=== PATIENT | female | born 1940 | race Caucasian/White ===

== ENCOUNTER 2017-04-26 09:37 | Inpatient (IN) | payer MEDICARE, OTHER ==
[~2017-04-26] VITALS: Ht 167.6 cm; Wt 68.2 kg
[2017-04-26] VITALS (9 sets, daily range): BP systolic 100–124; BP diastolic 46–70; PULSE 68–87; TEMP 97.4–98.3
[2017-04-26 09:57] LABS: BASO # 0.1 (0.0-0.2); EOS # 0.2 (0.0-0.7); EOS % 3.1 % (0-4.0); GRAN # 2.6 (1.4-6.5); GRAN % 51.1 % (42.2-75.2); HEMATOCRIT 38.8 % (37.0-47.0); HEMOGLOBIN 12.7 g/dl (12.5-16.0); LYMPH # 1.7 (1.2-3.4); LYMPH % 32.8 % (20.0-51.0); MEAN CELL VOLUME 95 fl (80.0-100.0); MEAN CORPUSCULAR HEMOGLOBIN 31 pg (27.0-31.0); MEAN CORPUSCULAR HGB CONC 33 g/dl (33.0-37.0); MEAN PLATELET VOLUME 9.8 fl (7.4-10.4); MONO # 0.6 (0.1-0.6); MONO % 11.6 % (1.7-9.3); PLATELET COUNT 192 K/mm3 (130-400); RED BLOOD COUNT 4.09 M/mm3 (4.10-5.30); REDCELL DISTRIBUTION WIDTH-CV 12.8 % (11.5-14.5)
[2017-04-26 10:11] LABS: ALBUMIN 4.1 gm/dL (3.5-5.0); BILIRUBIN,TOTAL 0.4 mg/dL (0.0-1.0); CALCIUM 8.9 mg/dL (8.4-10.2); CREATININE, serum 0.74 mg/dL (0.52-1.25); TOTAL PROTEIN 6.9 gm/dL (6.4-8.2)
[2017-04-26] MEDS ORDERED: MOBIC 7.5MG7.5 MG PO (11:14)
[2017-04-26] MEDS ORDERED: ZANTAC 150150 MG PO (11:15)
[2017-04-26] MEDS ORDERED: CENTRUM SILVER1 CTB PO (11:39)
[2017-04-26] MEDS ORDERED: MSM1000 MG PO (11:40)
[2017-04-26] MEDS ORDERED: CALCIUM CARBON650 M2 PO (11:40)
[2017-04-26] MEDS ORDERED: BIOTIN10000 MC1 PO (11:41)
[2017-04-26] MEDS ORDERED: MELAT3MGTAB PO (11:41)
[2017-04-26] MEDS ORDERED: LUTEIN20 M1 PO (11:42)
[2017-04-26] MEDS ORDERED: SALON PAS TP (11:43)
[2017-04-26] MEDS ORDERED: ZEAXANTHIN PO (11:44)
[2017-04-26] MEDS ORDERED: 5HTP PO (11:45)
[2017-04-26 13:13] LABS: INR 1.1 (0.8-3.0); PROTHROMBIN TIME 12.2 SECONDS (9.7-12.8)
[2017-04-26 15:48] LABS: COLLECTION METHOD CATHETER
[2017-04-26 15:57] LABS: MUCOUS Present /lpf; PH 5 (5-8); SQUAMOUS EPITHELIAL None Seen /hpf; URINE APPEARANCE Hazy; URINE BACTERIA Rare /hpf; URINE BILIRUBIN Negative (NEGATIVE); URINE BLOOD Negative (NEGATIVE); URINE COLOR Yellow; URINE GLUCOSE Negative (NEGATIVE); URINE KETONE Negative (NEGATIVE); URINE LEUKOCYTE ESTERASE Negative (NEGATIVE); URINE NITRATE Positive (NEGATIVE); URINE PROTEIN(semi-quant) Negative (NEGATIVE); URINE RBC 0-2 /hpf; URINE UROBILINOGEN Negative (NEGATIVE); URINE WBC 0-2 /hpf
[2017-04-27] VITALS (7 sets, daily range): BP systolic 92–111; BP diastolic 46–71; PULSE 64–85; TEMP 97.8–98.9
[2017-04-27 06:26] LABS: HEMOGLOBIN 10.4 g/dl (12.5-16.0)
[2017-04-27 06:37] LABS: CALCIUM 8.3 mg/dL (8.4-10.2); CREATININE, serum 0.73 mg/dL (0.52-1.25)
[2017-04-28 05:36] VITALS: BP 117/56; PULSE 89; TEMP 99.5
[2017-04-28 07:33] LABS: BASO % 0.4 % (0.0-2.0); EOS # 0.1 (0.0-0.7); GRAN # 6.7 (1.4-6.5); HEMATOCRIT 29.2 % (37.0-47.0); HEMOGLOBIN 9.6 g/dl (12.5-16.0); LYMPH # 0.8 (1.2-3.4); LYMPH % 9.3 % (20.0-51.0); MEAN CELL VOLUME 95 fl (80.0-100.0); MEAN CORPUSCULAR HEMOGLOBIN 31 pg (27.0-31.0); MEAN CORPUSCULAR HGB CONC 33 g/dl (33.0-37.0); MEAN PLATELET VOLUME 10.5 fl (7.4-10.4); MONO # 0.6 (0.1-0.6); MONO % 7.8 % (1.7-9.3); PLATELET COUNT 156 K/mm3 (130-400); RED BLOOD COUNT 3.07 M/mm3 (4.10-5.30)
[2017-04-28 07:41] LABS: CALCIUM 8.1 mg/dL (8.4-10.2); CREATININE, serum 0.71 mg/dL (0.52-1.25); POTASSIUM 3.9 mmol/L (3.4-5.0)
[2017-04-28 09:20] VITALS: BP 103/48; PULSE 78; TEMP 99.6
[2017-04-28 13:37] VITALS: BP 103/51; PULSE 91; TEMP 98.7
[2017-04-28 16:42] VITALS: BP 121/55; PULSE 80; TEMP 98.5
[2017-04-28 20:00] VITALS: BP 126/66; PULSE 90; TEMP 100.5
[2017-04-29] VITALS (7 sets, daily range): BP systolic 108–122; BP diastolic 50–94; PULSE 50–94; TEMP 98.4–100.1
[2017-04-29] MEDS ORDERED: ASPIRIN 32325 MG/TA1 PO (09:28)
[2017-04-30 02:01] VITALS: BP 112/69; PULSE 70; TEMP 99.3
[2017-04-30 05:16] VITALS: BP 125/61; PULSE 82; TEMP 99.6
[2017-04-30 09:47] VITALS: BP 126/62; PULSE 82; TEMP 97.3
[2017-04-30 10:08] VITALS: BP 126/62; PULSE 82; TEMP 97.3
== END 2017-04-30 11:19 | DRG 470 ==
LOC: COL.ER 09:37 → SURG 11:13 → COL.ER 14:29 → SURG 04-30 11:19
PROVIDERS: Family Medicine; Nurse Practitioner; Nurse Practitioner Family; Orthopaedic Surgery
PROC: 0SRR0J9 Replacement of Right Hip Joint, Femoral Surface with Synthetic Substitute, Cemented, Open Approach (ICD-10-PCS; principal; 2017-04-26 15:00)
DX: S72.001A Fracture of unspecified part of neck of right femur, initial encounter for closed fracture (principal); S42.451A Displaced fracture of lateral condyle of right humerus, initial encounter for closed fracture; W10.9XXA Fall (on) (from) unspecified stairs and steps, initial encounter; S52.044A Nondisplaced fracture of coronoid process of right ulna, initial encounter for closed fracture; Y93.K9 Activity, other involving animal care; Y92.009 Unspecified place in unspecified non-institutional (private) residence as the place of occurrence of the external cause; M79.7 Fibromyalgia; G89.4 Chronic pain syndrome; D64.9 Anemia, unspecified; Z87.891 Personal history of nicotine dependence
CPT/HCPCS: 99222-AI; 99232-AI; 99233-AI; 99238; 99239; A4314; A9284; C1713; C1776; J0171; J0690; J2060; J2250; J2270; J2370; J2405; J2704; J3010; J7120; J7121; Q4050

== ENCOUNTER → 2017-05-04 | Outpatient (CLI) | payer MEDICARE, OTHER ==
[~2017-05-04] MED LIST: 5HTP PO; ASPIRIN 32325 MG/TA1 PO; BIOTIN10000 MC1 PO; CALCIUM CARBON650 M2 PO; CENTRUM SILVER1 CTB PO; LUTEIN20 M1 PO; MELAT3MGTAB PO; MOBIC 7.5MG7.5 MG PO; MSM1000 MG PO; SALON PAS TP; ZANTAC 150150 MG PO; ZEAXANTHIN PO
[2017-05-04 10:19] LABS: BASO % 0.5 % (0.0-2.0); EOS # 0.2 (0.0-0.7); GRAN # 4.2 (1.4-6.5); GRAN % 69.3 % (42.2-75.2); LYMPH % 15.7 % (20.0-51.0); MEAN CELL VOLUME 92 fl (80.0-100.0); MEAN CORPUSCULAR HGB CONC 34 g/dl (33.0-37.0); MEAN PLATELET VOLUME 9.4 fl (7.4-10.4); MONO # 0.6 (0.1-0.6); MONO % 9.8 % (1.7-9.3); PLATELET COUNT 334 K/mm3 (130-400); RED BLOOD COUNT 3.66 M/mm3 (4.10-5.30); REDCELL DISTRIBUTION WIDTH-CV 12.6 % (11.5-14.5)
[2017-05-04 10:20] LABS: HEMATOCRIT 33.6 % (37.0-47.0); HEMOGLOBIN 11.3 g/dl (12.5-16.0); MEAN CORPUSCULAR HEMOGLOBIN 31 pg (27.0-31.0)
[2017-05-04 10:23] LABS: CALCIUM 9.7 mg/dL (8.4-10.2); CREATININE, serum 0.71 mg/dL (0.52-1.25)
== END ==
LOC: COL.CARD 08:42
PROVIDERS: Orthopaedic Surgery Hand Surgery
DX: Z01.818 Encounter for other preprocedural examination (principal)

== ENCOUNTER → 2017-05-05 | Outpatient (CLI) | payer MEDICARE, OTHER | LOC: COL.RAD 11:35 | DX: Z01.818 Encounter for other preprocedural examination (principal); S42.401A Unspecified fracture of lower end of right humerus, initial encounter for closed fracture ==

== ENCOUNTER 2020-03-03 09:27 | Day surgery (SDC) | payer MEDICARE, OTHER ==
[2020-03-03] VITALS (7 sets, daily range): BP systolic 107–140; BP diastolic 58–77; PULSE 78–94; TEMP 97.3–97.9
[~2020-03-03] VITALS: Ht 165.1 cm; Wt 88.0 kg
[2020-03-03] MEDS ORDERED: MOBIC 7.5MG7.5 MG PO (10:42)
[2020-03-03] MEDS ORDERED: REQUIP 1MG T1 MG/TAB PO (10:44)
[2020-03-03] MEDS ORDERED: ESTER C PO (10:45)
[2020-03-03] MEDS ORDERED: MSM1000 MG (10:46)
[2020-03-03] MEDS ORDERED: CENTRUM SILVER1 TAB (10:46)
[2020-03-03] MEDS ORDERED: CALCIUM 600 PLU1 TAB PO (10:47)
[2020-03-03] MEDS ORDERED: PHARMASSURE ZIN50 MG PO (10:47)
[2020-03-03] MEDS ORDERED: AZO-CRANBERRY450 MG (10:48)
[2020-03-03] MEDS ORDERED: LUTEIN20 M1 PO (10:49)
[2020-03-03] MEDS ORDERED: NATURE'S BLE1000 MCG (10:50)
[2020-03-03] MEDS ORDERED: ADVIL200 MG PO (10:51)
[2020-03-03] MEDS ORDERED: TYLENOL 500MG500 MG PO (10:51)
[2020-03-03] MEDS ORDERED: ULTRAM 50MG TAB50 MG PO (14:07)
--- NOTE | 2020-03-03 15:03 | NUR ---
PATIENT TRANSPORTED FROM PACU PER CART TO BAY 2 ACCOMPANIED BY IMPORTER OR EXPORTER. MONITORS REAPPLIED. PATIENT TALKING WITH STAFF. MONITORS REAPPLIED. VSS ON ROOM AIR. VERBAL REPORT RECEIVED. 1507 PATIENT REQUESTS TO AMBULATED TO RESTROOM.
--- NOTE | 2020-03-03 15:26 | NUR ---
PATIENT AMBULATED A DISTANCE TO THE RESTROOM. PATIENT USES HER WALKER AND AMBULATED WITH A SLOW STEADY GAIT. VOIDS WITHOUT PROBLEMS. PATIENT AMBULATED BACK TO BAY 2. MONITORS REAPPLIED. VSS ON ROOM AIR. 1540 PATIENT GIVEN TOAST AND PEPSI.
--- NOTE | 2020-03-03 15:46 | NUR ---
VSS ON ROOM AIR. PATIENT SITTING UP ON CART WATCHING TV. STATES SORE AND SOME GAS DISCOMFORT. DENIES NEED FOR MEDS.
--- NOTE | 2020-03-03 16:02 | NUR ---
VSS ON ROOM AIR. PATIENT WATCHING TV.
--- NOTE | 2020-03-03 16:33 | NUR ---
VSS ON ROOM AIR. PATIENT AMBULATED TO RESTROOM WITH 1 ASSIST AND USES WALKER. SLOW STEADY GAIT. VOIDS WITHOUT PROBLEMS.
--- NOTE | 2020-03-03 16:45 | NUR ---
1635 IV SITE DC'D WITH CATHETER TIP INTACT. PRESSURE AND BANDAGE APPLIED. VSS ON ROOM AIR. DISCHARGE INSTRUCTIONS GIVEN VERBALLY. DISCHARGE PACKET GIVEN TO PATIENT. FOLLOW UP APPIONTMENT WAS MADE AND GIVEN TO PATIENT. QUESTIONS ANSWERED AND PATIENT VOICED UNDERSTANDING. PATIENT CHANGES INTO STREET CLOTHES. 1647 PATIENT DISCHARGED PER WHEEL CHAIR WITH PERSONAL BELONGS. TO PRIVATE VECHILE DRIVEN BY DAUGHTER IN LAW.
== END 2020-03-03 16:47 | disposition home or self-care (01) ==
LOC: SDCO 09:27
DX: K40.20 Bilateral inguinal hernia, without obstruction or gangrene, not specified as recurrent (principal); K41.20 Bilateral femoral hernia, without obstruction or gangrene, not specified as recurrent; D17.79 Benign lipomatous neoplasm of other sites; M79.7 Fibromyalgia; G25.81 Restless legs syndrome; G89.29 Other chronic pain; M54.5 Low back pain; M48.00 Spinal stenosis, site unspecified; Z20.822 Contact with and (suspected) exposure to COVID-19; Z88.0 Allergy status to penicillin; Z96.641 Presence of right artificial hip joint; Z79.82 Long term (current) use of aspirin; Z79.899 Other long term (current) drug therapy; Z87.891 Personal history of nicotine dependence
CPT/HCPCS: C1781; J2704; J3010; J7120

== ENCOUNTER 2020-10-22 07:33 | Day surgery (SDC) | payer MEDICARE, OTHER ==
[~2020-10-22] VITALS: Ht 162.6 cm; Wt 86.1 kg
[~2020-10-22 07:33] MED LIST changes: +ADVIL200 MG PO; +AZO-CRANBERRY450 MG; +CALCIUM 600 PLU1 TAB PO; +CENTRUM SILVER1 TAB; +ESTER C PO; +MSM1000 MG; +NATURE'S BLE1000 MCG; +PHARMASSURE ZIN50 MG PO; +REQUIP 1MG T1 MG/TAB PO; +TYLENOL 500MG500 MG PO; +ULTRAM 50MG TAB50 MG PO
[2020-10-22] MEDS ORDERED: UNISOM25 MG PO (08:39)
[2020-10-22] MEDS ORDERED: NEXIUM 40MG40 MG PO (08:44)
[2020-10-22] MEDS ORDERED: SALONPAS1 EACH TP (08:44)
[2020-10-22 08:46] VITALS: BP 149/81; PULSE 75; TEMP 97.5
[2020-10-22 09:50] VITALS: BP 160/75; PULSE 71; TEMP 97.5
--- NOTE | 2020-10-22 09:50 | NUR ---
Pt to GI bay 7 via cart from ENDO. Pt drowsy, but awake. Pt ambulates to recliner with stand by assistance x2. Pudding and juice given per pt request. No visitors here with pt at this time. Will continue to monitor. Call light within reach.
[2020-10-22 10:00] VITALS: BP 124/60; PULSE 60
--- NOTE | 2020-10-22 10:00 | NUR ---
Pt continues to rest. Denies needs. Call light within reach.
[2020-10-22 10:15] VITALS: BP 138/71; PULSE 68
--- NOTE | 2020-10-22 10:15 | NUR ---
IV site discontinued with all parts intact. Pt up to restroom with assistance. Pt back to room once done.
--- NOTE | 2020-10-22 10:30 | NUR ---
Discharge instructions reviewed. Pt voices understanding.
--- NOTE | 2020-10-22 10:55 | NUR ---
Pt escorted to private car via wheel chair. Pt accompanied home by her Daughter in law.
== END 2020-10-22 10:55 | disposition home or self-care (01) ==
LOC: SDCO 07:33
DX: Z12.11 Encounter for screening for malignant neoplasm of colon (principal); D17.5 Benign lipomatous neoplasm of intra-abdominal organs; D17.79 Benign lipomatous neoplasm of other sites; K57.30 Diverticulosis of large intestine without perforation or abscess without bleeding; K21.9 Gastro-esophageal reflux disease without esophagitis; G43.909 Migraine, unspecified, not intractable, without status migrainosus; I10 Essential (primary) hypertension; K58.9 Irritable bowel syndrome, unspecified; M19.90 Unspecified osteoarthritis, unspecified site; M54.9 Dorsalgia, unspecified; G89.29 Other chronic pain; M79.7 Fibromyalgia; R11.15 Cyclical vomiting syndrome unrelated to migraine; K31.1 Adult hypertrophic pyloric stenosis; F12.10 Cannabis abuse, uncomplicated; F41.1 Generalized anxiety disorder; F32.9 Major depressive disorder, single episode, unspecified; F41.0 Panic disorder [episodic paroxysmal anxiety]; Z79.82 Long term (current) use of aspirin; Z20.822 Contact with and (suspected) exposure to COVID-19; Z79.899 Other long term (current) drug therapy; Z87.891 Personal history of nicotine dependence; Z90.710 Acquired absence of both cervix and uterus; Z90.89 Acquired absence of other organs
CPT/HCPCS: J2704; J3010; J7030